=== PATIENT | female | born 1985 | race Caucasian/White ===

== ENCOUNTER 2018-06-20 18:30 | Emergency (ER) | payer SELFPAY ==
[~2018-06-20] VITALS: Ht 170.2 cm; Wt 61.2 kg
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
[2018-06-20] MEDS ORDERED: KETOROLAC 30 MG/ML VIAL. IM ONE (19:30)
[2018-06-20 19:46] VITALS: BP 138/76
--- NOTE | 2018-06-20 19:52 | RAD ---
Indication:RIGHT KNEE PAIN WITH BRUISING. TECHNIQUE: 3 views of the right knee COMPARISON:None FINDINGS/ impression: No acute fracture or dislocation. No joint effusion. No significant arthritic changes. Electronically signed by: Luis Alberto Strauss DO (06/20/2018 7:49 PM) [facility]
--- NOTE | 2018-06-20 19:54 | RAD ---
Indication:RIGHT FOOT PAIN, SWELLING WITH BRUISING ON ANTERIOR AND MEDIAL ASPECT OF FOOT. TECHNIQUE: 3 views of the right foot COMPARISON:None FINDINGS/ impression: No acute fracture or dislocation. Electronically signed by: Luis Alberto Strauss DO (06/20/2018 7:51 PM) [facility]
[2018-06-20] MEDS ORDERED: IBUPROFEN 200 MG TABLET. PO ONE (20:00)
== END 2018-06-20 20:21 | disposition home or self-care (01) ==
LOC: ER 18:30
DX: S93.601A Unspecified sprain of right foot, initial encounter (principal); S83.91XA Sprain of unspecified site of right knee, initial encounter; Y09 Assault by unspecified means
CPT/HCPCS: 29515; 73562; 73630; 81025; 99283